=== PATIENT | male | born 2000 | race Caucasian/White ===

== ENCOUNTER 2021-12-31 06:49 | Emergency (ER) | payer BC ==
[2021-12-31] MEDS ORDERED: IBUPROFEN 200 MG TAB PO ONE (07:49)
[2021-12-31] MEDS ORDERED: IBUPROFEN 400 MG TAB ONE (07:49)
[2021-12-31] MEDS ORDERED: ACETAMINOPHEN 500 MG TAB ONE (07:49)
[2021-12-31] MEDS ORDERED: ONDANSETRON 4 MG (ODT) TAB ONE (07:50)
--- NOTE | 2021-12-31 08:42 | RAD REPORT ---
EXAM DESCRIPTION: Dotty Single View12/31/2021 8:32 am CLINICAL HISTORY: Chest pain COMPARISON: 2020 FINDINGS: The lungs appear clear of acute infiltrate. The heart is normal size IMPRESSION: No acute abnormalities displayed
--- NOTE | 2021-12-31 09:17 | EDPHYS ---
Physician Documentation [facility] Name: Ovidio Muse Age: 21 yrs Sex: Male : 2000 Arrival Date: 12/31/2021 Time: 06:55 Bed 4 Private MD: ED Physician Viet Soto HPI: 12/31 07:22 This 21 yrs old Male presents to ER via Ambulatory with complaints of Cough, Chest jr11 Pressure, Abdominal Pain, Fever, Sore Throat. 07:22 The patient or guardian reports cough, that is intermittent. Onset: The jr11 symptoms/episode began/occurred yesterday. Severity of symptoms: At their worst the symptoms were moderate, in the emergency department the symptoms are actually worse. Modifying factors: The symptoms are alleviated by nothing, the symptoms are aggravated by nothing. Associated signs and symptoms: Pertinent positives: chest pain, with cough, rhinorrhea, sore throat. +sick contacts, GF had a cough. Historical: - Allergies: 07:18 No Known Allergies; gonsales - Home Meds: 07:18 None [Active]; gonsales - PMHx: 07:18 None; gonsales - PSHx: 07:18 None; gonsales - Immunization history:: Adult Immunizations up to date. - Social history:: Smoking status: Patient denies any tobacco usage or history of. ROS: 07:22 All other systems are negative. jr11 Exam: 07:22 Constitutional: This is a well developed, well nourished patient who is awake, alert, jr11 and in no acute distress. Head/Face: Normocephalic, atraumatic. Eyes: Extra-ocular motions intact. Lids and lashes normal. Conjunctiva and sclera are non-icteric and not injected. Cornea within normal limits. Periorbital areas with no swelling, redness, or edema. ENT: boggy nasal mucosa, injected OP, no exudate Chest/axilla: Normal chest wall appearance and motion. Nontender with no deformity. No lesions are appreciated. Cardiovascular: tachy, RRR Respiratory: Lungs have equal breath sounds bilaterally, clear to auscultation and percussion. No rales, rhonchi or wheezes noted. No increased work of breathing, no retractions or nasal flaring. Abdomen/GI: Soft, non-tender, with normal bowel sounds. No distension or tympany. No guarding or rebound. No evidence of tenderness throughout. Back: No spinal tenderness. No costovertebral tenderness. Full range of motion. Skin: Warm, dry with normal turgor. Normal color with no rashes, no lesions, and no evidence of cellulitis. MS/ Extremity: Pulses equal, no cyanosis. Neurovascular intact. Full, normal range of motion. Vital Signs: 07:16 BP 129 / 85; Pulse 117; Resp 19; Temp 99(O); Pulse Ox 100% ; Weight 70.76 kg; Height 5 gonsales ft. 6 in. (167.64 cm); 07:16 Body Mass Index 25.18 (70.76 kg, 167.64 cm) gonsales MDM: 07:17 Patient medically screened. [facility] 07:22 Differential Diagnosis: Influenza Upper Respiratory Infection Viral Syndrome Other [facility] covid. Data reviewed: vital signs, nurses notes. ED course: Patient is a 21-year-old that is having a dry cough, runny nose congestion for the last 2 days, patient otherwise with slight tachycardia, headache, denies worse or thunderclap. Patient appears with a viral syndrome, clear to auscultation bilaterally oxygen saturation 100%. No concern for PE. Will do EKG, rule out mild, pericarditis. Patient will also get a chest x-ray rule out pneumonia.. 08:11 ED course: EKG: sinus tach 109, nl axis, nl intervals, non specific TWI V3, no STEMI. jr 09:14 Response to treatment: HR low 90s now, feeling better, +covid, ER warnings given . [facility] 12/31 07:19 Order name: Influenza Screen (a \\T\\ B); Complete Time: 09:11 [facility] 12/31 07:19 Order name: CXR XRAY; Complete Time: 08:46 [facility] 12/31 07:22 Order name: Influenza Screen (A ; Complete Time: 08:40 EDMS 12/31 07:41 Order name: SARS-COV-2 RT PCR (Document "Date of Onset" if Symptomatic) [facility] 12/31 07:19 Order name: EKG; Complete Time: 07:20 [facility] Administered Medications: 07:54 Drug: Ibuprofen 600 mg Route: PO; gonsales 07:54 Follow up: Response: No adverse reaction gonsales 07:54 Drug: Tylenol 1000 mg Route: PO; gonsales 07:55 Follow up: Response: No adverse reaction gonsales 07:54 Drug: Zofran (Ondansetron) 4 mg Route: PO; gonsales 07:54 Follow up: Response: No adverse reaction gonsales Disposition Summary: 12/31/21 09:16 Discharge Ordered Location: Home jr11 Condition: Stable jr11 Diagnosis - COVID 19, URI jr11 - Chest pain, unspecified jr11 Discharge Instructions: - Discharge Summary Sheet jr11 - COVID-19 Frequently Asked Questions jr11 - 10 Things You Can Do to Manage Your COVID-19 Symptoms at Home - [facility] jr11 Forms: - Medication Reconciliation Form jr11 - Work release form eb - Thank You Letter jr11 - Antibiotic Education jr11 - Prescription Opioid Use jr11 Prescriptions: - Ibuprofen 600 mg Oral Tablet - take 1 tablet by ORAL route every 6 hours As needed take with food; 30 tablet; jr11 Refills: 0, Product Selection Permitted Signatures: Dispatcher [employer] EDMS Shirley Whitaker RN RN Viet Soto MD MD jr11 Corrections: (The following items were deleted from the chart) 07:18 07:18 Home Meds: inhaler; gonsales gonsales 07:18 07:18 PMHx: chest pain; gonsales gonsales
--- NOTE | 2021-12-31 09:17 | ER ---
Nurse's Notes [facility] Name: Ovidio Muse Age: 21 yrs Sex: Male : 2000 Arrival Date: 12/31/2021 Time: 06:55 Bed 4 Private MD: Diagnosis: COVID 19, URI ;Chest pain, unspecified Presentation: 12/31 07:16 Chief complaint: Patient states: chest pressure, cough, abdominal pain, nausea. gonsales Coronavirus screen: Vaccine status: Patient reports receiving the 2nd dose of the covid vaccine. Ebola Screen: Patient denies travel to an Ebola-affected area in the 21 days before illness onset. Initial Sepsis Screen: Does the patient meet any 2 criteria? HR > 90 bpm. Does the patient have a suspected source of infection? No. Patient's initial sepsis screen is negative. Risk Assessment: Do you want to hurt yourself or someone else? Patient reports no desire to harm self or others. Onset of symptoms was December 30, 2021. 07:16 Method Of Arrival: Ambulatory 07:16 Acuity: SAEED 3 gonsales Triage Assessment: 07:18 General: Appears in no apparent distress. Behavior is calm, cooperative. Pain: gonsales Complains of pain in chest and abdomen. Cardiovascular: Reports chest pain, nausea. Historical: - Allergies: 07:18 No Known Allergies; gonsales - Home Meds: 07:18 None [Active]; gonsales - PMHx: 07:18 None; gonsales - PSHx: 07:18 None; gonsales - Immunization history:: Adult Immunizations up to date. - Social history:: Smoking status: Patient denies any tobacco usage or history of. Screenin:22 Abuse screen: Denies threats or abuse. Denies injuries from another. Nutritional gonsales screening: No deficits noted. Tuberculosis screening: No symptoms or risk factors identified. Fall Risk None identified. Assessment: 07:22 Pain: Pain does not radiate. Pain began gradually. gonsales Vital Signs: 07:16 BP 129 / 85; Pulse 117; Resp 19; Temp 99(O); Pulse Ox 100% ; Weight 70.76 kg; Height 5 gonsales ft. 6 in. (167.64 cm); 07:16 Body Mass Index 25.18 (70.76 kg, 167.64 cm) gonsales ED Course: 06:55 Patient arrived in ED. 2 07:09 Viet Soto MD is Attending Physician. jr11 07:13 Shirley Whitaker, RN is Primary Nurse. gonsales 07:18 Triage completed. gonsales 07:18 Arm band placed on. gonsales 07:22 Patient has correct armband on for positive identification. Bed in low position. gonsales shield installer on. Pulse ox on. NIBP on. 07:22 No provider procedures requiring assistance completed. Patient maintains SpO2 gonsales saturation greater than 95% on room air. 07:55 SARS-COV-2 RT PCR (Document "Date of Onset" if Symptomatic) Sent. gonsales 08:34 CXR XRAY In Process Unspecified. EDMS 09:23 Patient did not have IV access during this emergency room visit. gonsales Administered Medications: 07:54 Drug: Ibuprofen 600 mg Route: PO; gonsales 07:54 Follow up: Response: No adverse reaction gonsales 07:54 Drug: Tylenol 1000 mg Route: PO; gonsales 07:55 Follow up: Response: No adverse reaction gonsales 07:54 Drug: Zofran (Ondansetron) 4 mg Route: PO; gonsales 07:54 Follow up: Response: No adverse reaction gonsales Medication: 07:22 VIS not applicable for this client. gonsales Outcome: 09:16 Discharge ordered by . jr11 09:23 Discharged to home ambulatory. gonsales 09:23 Condition: good 09:23 Discharge instructions given to patient, Prescriptions given X 1. 09:23 Patient left the ED. gonsales Signatures: Dispatcher [employer] EDMI Jesus Annette Shirley Gallagher, SLOANE ANTON Viet Soto MD MD jr11 Corrections: (The following items were deleted from the chart) 07:18 07:18 Home Meds: inhaler; gonsales gonsales 07:18 07:18 PMHx: chest pain; gonsales gonsales
[2021-12-31 09:28] VITALS: BP 129/85; TEMP 99; O2SAT 100
--- NOTE | 2022-01-02 09:06 | EKG ---
Test Date: 2021-12-31 Test Time: 07:55:30 Site Inspector: IGGY MEASUREMENT RESULTS: Intervals: Rate: 109 RI: 140 QRSD: 88 QT: 316 QTc: 425 [place]: P: -1 RI: 140 QRS: 5 T: 61 INTERPRETIVE STATEMENTS: Sinus tachycardia Moderate voltage criteria for LVH, may be normal variant Possible Inferior infarct, age undetermined Abnormal ECG Compared to ECG 06/15/2021 00:22:09 Left ventricular hypertrophy now present Myocardial infarct finding now present Sinus rhythm no longer present Electronically Signed On 01-02-22 09:03:25 CDT by Fred Guillermo
== END 2021-12-31 09:23 | disposition home or self-care (01) ==
LOC: ER 06:49
DX: U07.1 COVID-19 (principal); J06.9 Acute upper respiratory infection, unspecified
CPT/HCPCS: 93005; 87804 ×2; 71045; 99285; U0003; Q0162

== ENCOUNTER 2022-10-31 16:46 | Emergency (ER) | payer BC ==
--- OUTSIDE RECORDS SUMMARY | 2022-10-31 16:48 | XMS REPORT | Continuity of Care Document ---
:2000 Author Organization [facility] t Address [address] [place] [address] [place] [id number] Care Team Providers Name Role Phone Only, Adc Test Attending Clinician Unavailable Tyshawn Frye MD Attending Clinician Pablo HOU, Jared Attending Clinician JARED SHAH Attending Clinician Unavailable Doctor Unassigned, [place] Attending Clinician Unavailable Pcp, Patient Does Not Have A Attending Clinician [phone]- [phone] Payers Payer Name Policy Type Policy Number Effective Date Expiration Date S ource Problems Condition Condition Condition Status Onset Resolution Last Treating Co mments Source Name Details Category Date Date Treatment Clinician Date ACETABULAR ACETABULA Diagnosis Active 2015-09-23 Memoria FX R FX 4-04 04:58:00 l W/COLLAPSE W/COLLAPSE 00:00: Jose Cruz Velez LUNG D LUNG 00 Active 09/22/2015 [facility] TRACE LT TRACE LT Diagnosis Active 2016-02-04 Memoria PTX PTX 4-04 18:37:00 l Active 00:00: Ceasar 09/22/2015 00 [facility] No known No known Disease Unive rs active active ity of problems problems [facility] PNEUMOTHOR Diagnosis Active 2016-02-04 Memoria AX, PNEUMOTHOR 18:37:00 l UNSPECIFIE AX, Eyal n D UNSPECIFIE D Active [facility] Allergies, Adverse Reactions, Alerts Allergy Allergy Status Severity Reaction(s) Onset Inactive Treating Comm ents Source Name Type Date Date Clinician NO KNOWN Drug Active Univers ALLERGIE Class ity of S [facility] Social History Social Habit Start Date Stop Date Quantity Comments Source Exposure to Not sure [facility] SARS-CoV-2 (event) Medica l Branch Tobacco use and 2020-12-27 2020-12-27 Never used [facility] [place] exposure 00:00:00 00:00:00 Medical Branch Sex Assigned At [birth year] [facility] 00:00:00 00:00:00 Medical Branch Smoking Status Start Date Stop Date Source Unknown if ever smoked [facility] [place] Never smoker [facility] Medical Branch Medications Ordered Filled Start Stop Current Ordering Indication Dosage Frequency Signature Comments Components Source Medication Medication Date Date Medication? Clinician (SIG) Name Name ondansetron Yes [id number] 4mg Take 1 Univers 4 mg 7-10 tablet by ity of disintegrat 00:00: mouth [place] ing tablet 00 every 8 Medica l (eight) Branch hours as needed for Nausea and Vomiting (N/V). albuterol Yes [id number] 2{puff} Inhale 2 Univers 90 7-10 Puffs ity of mcg/actuati 00:00: every 6 [place] as on inhaler 00 (six) Medical hours as Branch needed for Wheezing or Shortness of Breath. ondansetron Yes [id number] 4mg Take 1 Univers 4 mg 7-10 tablet by ity of disintegrat 00:00: mouth [place] ing tablet 00 every 8 Medica l (eight) Branch hours as needed for Nausea and Vomiting (N/V). albuterol Yes [id number] 2{puff} Inhale 2 Univers 90 7-10 Puffs ity of mcg/actuati 00:00: every 6 [place] as on inhaler 00 (six) Medical hours as Branch needed for Wheezing or Shortness of Breath. ondansetron Yes [id number] 4mg Take 1 Univers 4 mg 7-10 tablet by ity of disintegrat 00:00: mouth [place] ing tablet 00 every 8 Medica l (eight) Branch hours as needed for Nausea and Vomiting (N/V). albuterol Yes [id number] 2{puff} Inhale 2 Univers 90 7-10 Puffs ity of mcg/actuati 00:00: every 6 [place] as on inhaler 00 (six) Medical hours as Branch needed for Wheezing or Shortness of Breath. ondansetron Yes [id number] 4mg Take 1 Univers 4 mg 7-10 tablet by ity of disintegrat 00:00: mouth [place] ing tablet 00 every 8 Medica l (eight) Branch hours as needed for Nausea and Vomiting (N/V). albuterol Yes [id number] 2{puff} Inhale 2 Univers 90 7-10 Puffs ity of mcg/actuati 00:00: every 6 [place] as on inhaler 00 (six) Medical hours as Branch needed for Wheezing or Shortness of Breath. Vital Signs Vital Name Observation Time Observation Value Comments Source Systolic blood 2020-12-27 19:41:00 102 mm[Hg] [facility] Diastolic blood 2020-12-27 19:41:00 64 [facility]Hg[facility] 2020-12-27 19:41:00 102 /min [facility] Body temperature 2020-12-27 19:41:00 35.94 Jeny [facility] Respiratory rate 2020-12-27 19:41:00 20 /min [facility] Body height 2020-12-27 19:41:00 165.1 cm [facility] Body weight 2020-12-27 19:41:00 56.427 kg [facility] BMI 2020-12-27 19:41:00 20.70 kg/m2 [facility] Oxygen saturation in 2020-12-27 19:41:00 98 /min [facility] Arterial blood by [facility] [place] [facility] Pulse oximetry Branch Procedures This patient has no known procedures. Encounters Start End Encounter Admission Attending Care Care Encounter Source Date/Time Date/Time Type Type Clinicians Facility Department ID 2022-10-31 Outpatient [id number] Memoria 16:48:37 [id number] Ceasar [id number] 2021-01-09 2021-01-09 Laboratory Only, Adc Test [facility] 1.2.840. [id number] Univers 15:24:42 15:39:42 Only Tyshawn Frye [id number] [id number] [phone] [address] 2021-01-09 2021-01-09 Outpatient R [facility] [id number] Univers 15:15:00 15:15:00 ity of [facility] 2020-12-27 2020-12-27 [facility] [id number] Univers 14:34:12 15:23:03 Care [facility] [id number] it y of [place] [id number] [place] as Professio [phone] [address] Office [address] [facility] 2020-12-27 2020-12-27 [facility] [id number] Univers 14:20:00 14:20:00 JARED ity of [facility] 2020-12-27 2020-12-27 Letter Doctor JULES [id number] Univers 00:00:00 00:00:00 (Out) Unassigned, JULIA [id number] ity of [place] [facility] [id number] [place] as [phone] [address] 2020-12-27 2020-12-27 Letter Doctor JULES [id number] Univers 00:00:00 00:00:00 (Out) Unassigned, JULIA [id number] ity of [place] [facility] [id number] [place] as [phone] [address] 2020-12-27 2020-12-27 [facility] [id number] Univers 00:00:00 00:00:00 (Out) Patient Health [id number] it y of [place] Not [id number] [phone] [address] [facility] Results This patient has no known results.
[2022-10-31] MEDS ORDERED: PROMETHAZINE INJ 25 MG/ML AMP ONE (17:03)
[2022-10-31] MEDS ORDERED: MORPHINE 4 MG/ML SYR ONE (17:04)
--- NOTE | 2022-10-31 18:19 | RAD REPORT ---
EXAM DESCRIPTION: RAD - Ankle Left 3 View - 10/31/2022 6:05 pm CLINICAL HISTORY: Smash injury;Pain;Deformity COMPARISON: No comparisons FINDINGS: Moderate soft tissue swelling is seen along the anterior and lateral aspect of the ankle. No fracture or dislocation seen.
[2022-10-31] MEDS ORDERED: HYDROCODONE/APAP 5/325 MG TAB ONE (18:25)
[2022-10-31] MEDS ORDERED: IBUPROFEN 200 MG TAB PO ONE (18:26)
--- NOTE | 2022-10-31 18:28 | EDPHYS ---
Physician Documentation [facility] Name: Ovidio Muse Age: 21 yrs Sex: Male : 2000 Arrival Date: 10/31/2022 Time: 16:46 Bed 7 Private MD: ED Physician Keny Mancera HPI: 10/31 17:23 This 21 yrs old Male presents to ER via Wheelchair with complaints of Ankle Injury. snw 17:23 The complaints affect the left ankle. Onset: The symptoms/episode began/occurred snw acutely. At [employer], on trampoline, landed wrong on left ankle. Historical: - Allergies: 16:52 No Known Drug Allergies; hb - Home Meds: 16:52 None [Active]; hb - PMHx: 16:52 None; hb - PSHx: 16:52 None; hb - Immunization history:: Adult Immunizations up to date. - Social history:: Smoking status: Patient denies any tobacco usage or history of. ROS: 17:23 Constitutional: Negative for fever, chills, and weight loss, Eyes: Negative for injury, snw pain, redness, and discharge, ENT: Negative for injury, pain, and discharge, Neck: Negative for injury, pain, and swelling, Cardiovascular: Negative for chest pain, palpitations, and edema, Respiratory: Negative for shortness of breath, cough, wheezing, and pleuritic chest pain, Abdomen/GI: Negative for abdominal pain, nausea, vomiting, diarrhea, and constipation, Back: Negative for injury and pain, : Negative for injury, bleeding, discharge, and swelling, Skin: Negative for injury, rash, and discoloration, Neuro: Negative for headache, weakness, numbness, tingling, and seizure, Psych: Negative for depression, anxiety, suicide ideation, homicidal ideation, and hallucinations. 17:23 MS/extremity: Positive for injury or acute deformity, decreased range of motion, pain, swelling, of the left lateral ankle. Exam: 17:22 Constitutional: This is a well developed, well nourished patient who is awake, alert, snw and in no acute distress. Head/Face: Normocephalic, atraumatic. Eyes: Pupils equal round and reactive to light, extra-ocular motions intact. Lids and lashes normal. Conjunctiva and sclera are non-icteric and not injected. Cornea within normal limits. Periorbital areas with no swelling, redness, or edema. ENT: Nares patent. No nasal discharge, no septal abnormalities noted. Tympanic membranes are normal and external auditory canals are clear. Oropharynx with no redness, swelling, or masses, exudates, or evidence of obstruction, uvula midline. Mucous membranes moist. Neck: Trachea midline, no thyromegaly or masses palpated, and no cervical lymphadenopathy. Supple, full range of motion without nuchal rigidity, or vertebral point tenderness. No Meningismus. Chest/axilla: Normal chest wall appearance and motion. Nontender with no deformity. No lesions are appreciated. Cardiovascular: Regular rate and rhythm with a normal S1 and S2. No gallops, murmurs, or rubs. Normal PMI, no JVD. No pulse deficits. Respiratory: Lungs have equal breath sounds bilaterally, clear to auscultation and percussion. No rales, rhonchi or wheezes noted. No increased work of breathing, no retractions or nasal flaring. Abdomen/GI: Soft, non-tender, with normal bowel sounds. No distension or tympany. No guarding or rebound. No evidence of tenderness throughout. Back: No spinal tenderness. No costovertebral tenderness. Full range of motion. Skin: Warm, dry with normal turgor. Normal color with no rashes, no lesions, and no evidence of cellulitis. Neuro: Awake and alert, GCS 15, oriented to person, place, time, and situation. Cranial nerves II-XII grossly intact. Motor strength 5/5 in all extremities. Sensory grossly intact. Cerebellar exam normal. Normal gait. Psych: Awake, alert, with orientation to person, place and time. Behavior, mood, and affect are within normal limits. 17:22 Musculoskeletal/extremity: Extremities: grossly normal except: deformity, swelling, tenderness, swelling, Circulation is intact in all extremities. Sensation intact. Weight bearing: is unable to bear weight. Vital Signs: 16:51 BP 111 / 76; Pulse 121; Resp 18; Temp 97.9; Pulse Ox 100% on R/A; Weight 62.6 kg; hb Height 5 ft. 8 in. ; Pain 10/10; 18:36 BP 106 / 74; Pulse 102; Resp 18; Pulse Ox 100% on R/A; ld1 16:51 Body Mass Index 20.98 (62.60 kg, 172.72 cm) hb 16:51 Pain Scale: Adult hb MDM: 16:55 Patient medically screened. cp 18:09 Differential diagnosis: fracture, sprain. Data reviewed: vital signs, nurses notes, snw radiologic studies. Independent interpretation of the following test(s) in the Emergency Department X-Ray: My interpretation is no noted fx, significant lateral soft tissue swelling. Counseling: I had a detailed discussion with the patient and/or guardian regarding: the historical points, exam findings, and any diagnostic results supporting the discharge/admit diagnosis, radiology results, the need for outpatient follow up, for definitive care, to return to the emergency department if symptoms worsen or persist or if there are any questions or concerns that arise at home. Response to treatment: There is no appreciated change of the patient's symptoms at this time. Special discussion: Based on the history and exam findings, there is no indication for further emergent testing or inpatient evaluation. I discussed with the patient/guardian the need to see the orthopedic surgeon for further evaluation of the symptoms. I discussed with the patient/guardian the need to see the primary care provider for further evaluation of the symptoms. 10/31 16:57 Order name: Ankle Left 3 View XRAY; Complete Time: 18:26 snw 10/31 16:57 Order name: Ice pack; Complete Time: 17:04 snw 10/31 18:05 Order name: Walking boot; Complete Time: 18:36 snw 10/31 18:29 Order name: Recheck VS; Complete Time: 18:45 snw 10/31 18:29 Order name: Crutch Training; Complete Time: 18:36 snw 10/31 18:29 Order name: Crutches; Complete Time: 18:45 snw Administered Medications: 17:04 Drug: morphine IM 4 mg Route: IM; Site: right deltoid; hb 17:04 Drug: Promethazine IM 25 mg Route: IM; Site: left deltoid; hb 18:23 Drug: Ibuprofen PO 600 mg Route: PO; eh3 18:23 Drug: HYDROcodone-acetaminophen PO 5 mg-325 mg 1 tabs Route: PO; eh3 Disposition Summary: 10/31/22 18:27 Discharge Ordered Location: Home snw Condition: Stable snw Diagnosis - Sprain of ankle snw Followup: snw - With: Emergency Department - When: As needed - Reason: Worsening of condition Followup: snw - With: Private Physician - When: 1 - 2 days - Reason: Recheck today's complaints, Continuance of care, Re-evaluation by your physician Discharge Instructions: - Discharge Summary Sheet snw - Ankle Sprain snw - Crutch Use, Adult snw - RICE Therapy for Routine Care of Injuries snw - Walking Boot, Adult snw Forms: - Medication Reconciliation Form snw - Thank You Letter snw - Antibiotic Education snw - Prescription Opioid Use snw - Work release form ld1 Prescriptions: - Mobic 7.5 mg Oral Tablet - take 1 tablet by ORAL route once daily take with food; 20 tablet; Refills: 0, snw Product Selection Permitted Signatures: Dispatcher [employer] EDConnie Fulton FNP-C WELD INSPECTOR-Csnw Mau Fiore PA PA cp Baxter, Heather, RN RN Katalina Olivarez RN RN eh3
--- NOTE | 2022-10-31 18:28 | ER ---
Nurse's Notes [facility] Name: Ovidio Muse Age: 21 yrs Sex: Male : 2000 Arrival Date: 10/31/2022 Time: 16:46 Bed 7 Private MD: Diagnosis: Sprain of ankle Presentation: 10/31 16:51 Chief complaint: Left ankle pain after fall on trampoline just prior to arrival. hb Obvious deformity noted to left ankle. Last PO intake was 1545. Coronavirus screen: At this time, the client does not indicate any symptoms associated with coronavirus-19. Ebola Screen: No symptoms or risks identified at this time. Initial Sepsis Screen: Does the patient meet any 2 criteria? No. Patient's initial sepsis screen is negative. Does the patient have a suspected source of infection? No. Patient's initial sepsis screen is negative. Risk Assessment: Do you want to hurt yourself or someone else? Patient reports no desire to harm self or others. Onset of symptoms was October 31, 2022. 16:51 Method Of Arrival: Wheelchair hb 16:51 Acuity: SAEED 3 hb Triage Assessment: 16:53 General: Appears in no apparent distress. uncomfortable, Behavior is cooperative, hb anxious. Pain: Pain currently is 10 out of 10 on a pain scale. Neuro: Level of Consciousness is awake, alert, obeys commands, Oriented to person, place, time, situation. Cardiovascular: Patient's skin is warm and dry. Respiratory: Respiratory effort is even, unlabored, Respiratory pattern is regular, symmetrical. Musculoskeletal: Bony deformity noted of left lateral ankle. Historical: - Allergies: 16:52 No Known Drug Allergies; hb - Home Meds: 16:52 None [Active]; hb - PMHx: 16:52 None; hb - PSHx: 16:52 None; hb - Immunization history:: Adult Immunizations up to date. - Social history:: Smoking status: Patient denies any tobacco usage or history of. Screenin:02 [facility] ED Fall Risk Assessment (Adult) History of falling in the last 3 months, ld1 including since admission No falls in past 3 months (0 pts). Abuse screen: Denies threats or abuse. Denies injuries from another. Nutritional screening: No deficits noted. Tuberculosis screening: No symptoms or risk factors identified. Assessment: 18:02 General: Appears in no apparent distress. comfortable, Behavior is calm, cooperative, ld1 appropriate for age. Pain: Complains of pain in left leg and left lateral ankle Pain does not radiate. Pain currently is 8 out of 10 on a pain scale. Quality of pain is described as sharp, throbbing. Neuro: Level of Consciousness is awake, alert, obeys commands, Oriented to person, place, time, situation. Cardiovascular: Capillary refill < 3 seconds Patient's skin is warm and dry. Respiratory: Airway is patent Respiratory effort is even, unlabored. GI: Abdomen is flat, non-distended. : No signs and/or symptoms were reported regarding the genitourinary system. EENT: No signs and/or symptoms were reported regarding the EENT system. Derm: No signs and/or symptoms reported regarding the dermatologic system. Musculoskeletal: No signs and/or symptoms reported regarding the musculoskeletal system. Vital Signs: 16:51 BP 111 / 76; Pulse 121; Resp 18; Temp 97.9; Pulse Ox 100% on R/A; Weight 62.6 kg; hb Height 5 ft. 8 in. ; Pain 10/10; 18:36 BP 106 / 74; Pulse 102; Resp 18; Pulse Ox 100% on R/A; ld1 16:51 Body Mass Index 20.98 (62.60 kg, 172.72 cm) hb 16:51 Pain Scale: Adult hb ED Course: 16:47 Patient arrived in ED. am2 16:52 Triage completed. hb 16:52 Arm band placed on. hb 16:55 Mau Fiore PA is PHCP. cp 16:55 Keny Mancera MD is Attending Physician. cp 16:56 PHCP role handed off by Mau Fiore PA snw 16:56 Connie Bee FNP-C is PHCP. snw 18:01 Danya Pozo, SLOANE is Primary Nurse. ld1 18:02 Patient has correct armband on for positive identification. Bed in low position. Call ld1 light in reach. Side rails up X2. Pulse ox on. NIBP on. Door closed. Noise minimized. Warm blanket given. 18:02 No provider procedures requiring assistance completed. ld1 18:07 Ankle Left 3 View XRAY In Process Unspecified. EDMS Administered Medications: 17:04 Drug: morphine IM 4 mg Route: IM; Site: right deltoid; hb 17:04 Drug: Promethazine IM 25 mg Route: IM; Site: left deltoid; hb 18:23 Drug: Ibuprofen PO 600 mg Route: PO; eh3 18:23 Drug: HYDROcodone-acetaminophen PO 5 mg-325 mg 1 tabs Route: PO; eh3 Medication: 18:02 VIS not applicable for this client. ld1 Outcome: 18:27 Discharge ordered by MD. thompson 18:46 Patient left the ED. ld1 Signatures: Dispatcher [employer] EDMS Connie Bee, NATHAN-C TRANSPORT [employer]IC-Csnw Mau Fiore PA PA cp Shirley So RN RN hb Caridad Escobar am2 Danya Pozo RN RN ld1 Katalina Olivarez RN RN eh3 Corrections: (The following items were deleted from the chart) 16:55 16:51 Chief complaint: Left ankle pain after fall on trampoline just prior to arrival. hb Obvious deformity noted to left ankle. hb
[2022-10-31 18:53] VITALS: TEMP 97.9; O2SAT 100
[2022-10-31 18:55] VITALS: BP 106/74
== END 2022-10-31 18:46 | disposition home or self-care (01) ==
LOC: ER 16:46
DX: S93.402A Sprain of unspecified ligament of left ankle, initial encounter (principal)
CPT/HCPCS: 73610; 96372; 99284; J2550

== ENCOUNTER → 2023-06-27 | Emergency (ER) | payer BC ==
[2023-06-27 16:06] LABS: SARS-CoV-2 Antigen Rapid Res Negative (Negative)
--- NOTE | 2023-06-27 16:18 | ER ---
Nurse's Notes [facility] Name: Ovidio Muse Age: 22 yrs Sex: Male : 2000 Arrival Date: 06/27/2023 Time: 14:30 Bed DIS6 Private MD: Diagnosis: Influenza due to identified novel influenza A virus Presentation: 06/27 14:58 Chief complaint: Patient states: FLU-LIKE S/S SINCE TUESDAY. Coronavirus screen: At this bp time, the client does not indicate any symptoms associated with coronavirus-19. Ebola Screen: No symptoms or risks identified at this time. Initial Sepsis Screen: Does the patient meet any 2 criteria? No. Patient's initial sepsis screen is negative. Does the patient have a suspected source of infection? No. Patient's initial sepsis screen is negative. Risk Assessment: Do you want to hurt yourself or someone else? Patient reports no desire to harm self or others. Onset of symptoms is unknown. 14:58 Method Of Arrival: Ambulatory bp 14:58 Acuity: SAEED 4 bp Triage Assessment: 14:59 General: Appears in no apparent distress. Behavior is calm, cooperative, appropriate bp for age. Pain: Denies pain. GI: Reports nausea. Historical: - Allergies: 14:59 No Known Drug Allergies; bp - Immunization history:: Adult Immunizations up to date. - Social history:: Smoking status: Patient denies any tobacco usage or history of. Screenin:00 [facility] ED Fall Risk Assessment (Adult) History of falling in the last 3 months, kb3 including since admission No falls in past 3 months (0 pts). Abuse screen: Denies threats or abuse. Denies injuries from another. Nutritional screening: No deficits noted. Tuberculosis screening: No symptoms or risk factors identified. Assessment: 17:00 General: Appears in no apparent distress. ill, Behavior is calm, cooperative. GI: kb3 Reports nausea. Vital Signs: 14:58 BP 120 / 85; Pulse 96; Resp 16; Temp 97.9; Pulse Ox 97% ; Weight 63.5 kg; Height 5 ft. bp 6 in. ; 14:58 Body Mass Index 22.60 (63.50 kg, 167.64 cm) bp ED Course: 14:36 Patient arrived in ED. mr 14:51 Connie Bee FNP-C is PHCP. snw 14:51 Dustin Pozo DO is Attending Physician. snw 14:58 Jh Alexandra, RN is Primary Nurse. bp 14:59 Triage completed. bp 14:59 Arm band placed on. bp 15:50 SARS RAPID Sent. bc6 15:50 Strep Sent. bc6 15:50 Flu Sent. bc6 17:00 Patient has correct armband on for positive identification. Provided Education on: kb3 Discharge, medications, rest, increased PO fluids. 17:00 No provider procedures requiring assistance completed. Patient did not have IV access kb3 during this emergency room visit. Administered Medications: No medications were administered Medication: 17:00 VIS not applicable for this client. kb3 Outcome: 16:17 Discharge ordered by MD. snw 17:00 Discharged to home ambulatory, kb3 17:00 Condition: stable 17:00 Discharge instructions given to patient, Instructed on discharge instructions, follow up and referral plans. medication usage, Demonstrated understanding of instructions, follow-up care, medications, Prescriptions given X 2, 17:14 Patient left the ED. em1 Signatures: Connie Bee, NATHAN-C INSTRUCTOR PAINTING-CsnJulisa Jacobs, [facility] Reg Carlos Adams em1 Jh Alexandra, RN RN Jocelin Ellington, RN RN kb3 Joyce Naranjo 6
--- NOTE | 2023-06-27 16:18 | EDPHYS ---
Physician Documentation [facility] Name: Ovidio Muse Age: 22 yrs Sex: Male : 2000 Arrival Date: 06/27/2023 Time: 14:30 Bed DIS6 Private MD: ED Physician Dustin Pozo HPI: 06/27 16:21 This 22 yrs old Male presents to ER via Ambulatory with complaints of Fever, Cough, snw Nausea. 16:21 The patient reports fever, not measured (subjective). Onset: The symptoms/episode snw began/occurred suddenly, 3 day(s) ago, and became persistent. Associated signs and symptoms: Pertinent positives: cough, myalgias, runny nose, sinus congestion, sore throat. Severity of symptoms: At their worst the symptoms were moderate. The patient has not recently seen a physician. Historical: - Allergies: 14:59 No Known Drug Allergies; bp - Immunization history:: Adult Immunizations up to date. - Social history:: Smoking status: Patient denies any tobacco usage or history of. ROS: 16:20 Eyes: Negative for injury, pain, redness, and discharge, snw 16:20 Neck: Negative for injury, pain, and swelling, Cardiovascular: Negative for chest pain, palpitations, and edema, 16:20 Abdomen/GI: Negative for abdominal pain, nausea, vomiting, diarrhea, and constipation, Back: Negative for injury and pain, : Negative for injury, bleeding, discharge, and swelling, MS/Extremity: Negative for injury and deformity, Skin: Negative for injury, rash, and discoloration, Neuro: Negative for headache, weakness, numbness, tingling, and seizure, Psych: Negative for depression, anxiety, suicide ideation, homicidal ideation, and hallucinations, 16:20 Constitutional: Positive for body aches, chills, fever, malaise, poor PO intake, 16:20 ENT: Positive for nasal discharge, sinus congestion, sore throat, 16:20 Respiratory: Positive for cough, with no reported sputum, Exam: 16:19 Constitutional: This is a well developed, well nourished patient who is awake, alert, snw and in no acute distress. Head/Face: Normocephalic, atraumatic. Eyes: Pupils equal round and reactive to light, extra-ocular motions intact. Lids and lashes normal. Conjunctiva and sclera are non-icteric and not injected. Cornea within normal limits. Periorbital areas with no swelling, redness, or edema. Neck: Trachea midline, no thyromegaly or masses palpated, and no cervical lymphadenopathy. Supple, full range of motion without nuchal rigidity, or vertebral point tenderness. No Meningismus. Chest/axilla: Normal chest wall appearance and motion. Nontender with no deformity. No lesions are appreciated. Cardiovascular: Regular rate and rhythm with a normal S1 and S2. No gallops, murmurs, or rubs. Normal PMI, no JVD. No pulse deficits. Respiratory: Lungs have equal breath sounds bilaterally, clear to auscultation and percussion. No rales, rhonchi or wheezes noted. No increased work of breathing, no retractions or nasal flaring. Abdomen/GI: Soft, non-tender, with normal bowel sounds. No distension or tympany. No guarding or rebound. No evidence of tenderness throughout. Back: No spinal tenderness. No costovertebral tenderness. Full range of motion. Skin: Warm, dry with normal turgor. Normal color with no rashes, no lesions, and no evidence of cellulitis. MS/ Extremity: Pulses equal, no cyanosis. Neurovascular intact. Full, normal range of motion. Neuro: Awake and alert, GCS 15, oriented to person, place, time, and situation. Cranial nerves II-XII grossly intact. Motor strength 5/5 in all extremities. Sensory grossly intact. Cerebellar exam normal. Normal gait. Psych: Awake, alert, with orientation to person, place and time. Behavior, mood, and affect are within normal limits. 16:19 ENT: External ear(s): are unremarkable, Ear canal(s): are normal, TM's: erythema, that is mild, bilaterally, Nose: is normal, Mouth: is normal, Posterior pharynx: erythema, that is mild, Voice: is normal, Vital Signs: 14:58 BP 120 / 85; Pulse 96; Resp 16; Temp 97.9; Pulse Ox 97% ; Weight 63.5 kg; Height 5 ft. bp 6 in. ; 14:58 Body Mass Index 22.60 (63.50 kg, 167.64 cm) bp MDM: 16:17 Patient medically screened. snw 16:20 Differential diagnosis: viral Infection, bacterial infection. Data reviewed: vital snw signs, nurses notes. Counseling: I had a detailed discussion with the patient and/or guardian regarding the historical points, exam findings, and any diagnostic results supporting the discharge/admit diagnosis, the need for outpatient follow up, for definitive care, to return to the emergency department if symptoms worsen or persist or if there are any questions or concerns that arise at home. Special discussion: Based on the history and exam findings, there is no indication for further emergent testing or inpatient evaluation. I discussed with the patient/guardian the need to see the primary care provider for further evaluation of the symptoms. 06/27 15:07 Order name: Flu; Complete Time: 16:09 snw 06/27 15:07 Order name: Strep snw 06/27 15:07 Order name: SARS RAPID; Complete Time: 16:09 snw 06/27 16:09 Order name: Throat Culture EDMS Administered Medications: No medications were administered Disposition: 18:42 I was immediately available on-site in the Emergency Department for consultation in the [facility] [place] the patient. Disposition Summary: 06/27/23 16:17 Discharge Ordered Notes: Location: Home snw Condition: Stable snw Diagnosis - Influenza due to identified novel influenza A virus snw Followup: snw - With: Emergency Department - When: As needed - Reason: Worsening of condition Followup: snw - With: Private Physician - When: 1 week - Reason: Recheck today's complaints, Continuance of care, Re-evaluation by your physician Discharge Instructions: - Discharge Summary Sheet snw - Fever, Adult snw - Influenza, Adult snw - Rehydration, Adult snw Forms: - Work release form snw - Medication Reconciliation Form snw - Thank You Letter snw - Antibiotic Education snw - Prescription Opioid Use snw - Patient Portal Instructions snw - Leadership Thank You Letter snw Prescriptions: - Delsym 12 hour 30 mg/5 mL Oral suspension, extended release 12 hr - take 5 milliliter ORAL route every 12 hours as needed for cough; 240 snw milliliter; Refills: 0, Product Selection Permitted - Zyrtec 10 mg Oral Tablet - take 1 tablet ORAL route once daily As needed; 20 tablet; Refills: 0, Product snw Selection Permitted - Pepcid 20 mg Oral Tablet - take 1 tablet ORAL route once daily; 20 tablet; Refills: 0, Product Selection snw Permitted Signatures: Dispatcher [employer] EDMS Connie Bee, TE[employer]-C TE[employer]-Csnw Jh Alexandra, RN RN bp Dustin Pozo, DO ms3
[2023-06-27 17:46] VITALS: BP 120/85; TEMP 97.9; O2SAT 97
== END ==
LOC: ER 14:30
DX: J10.1 Influenza due to other identified influenza virus with other respiratory manifestations (principal); Z11.52 Encounter for screening for COVID-19
CPT/HCPCS: 36415; 87070; 87081; 87804; 87811; 99283